=== PATIENT | male | born 1960 | race Two or more races ===

== ENCOUNTER 2025-03-01 12:04 | Emergency (ER) | payer MEDICAID, OTHER ==
[~2025-03-01] VITALS: Ht 160 cm; Wt 63.5 kg
[2025-03-01 13:01] LABS: APPEARANCE,URINE CLEAR (CLEAR); BLOOD, URINE Trace-intact Ery/uL (NEGATIVE); LEUKOCYTE ESTERASE ,URINE Negative (NEGATIVE); UGLUCOSE Negative (NEGATIVE)
[2025-03-01 13:03] LABS: NITRITE, URINE NEGATIVE (NEGATIVE)
[2025-03-01 13:04] LABS: PLATELET COUNT (AUTO) 195 K/uL (150-450); RED BLOOD CELL COUNT(AUTO) 5.66 MIL/uL (4.5-6.0); RED CELL DISTRIBUTION WIDTH 14.0 % (11.5-15.0); WHITE BLOOD COUNT (AUTO) 8.1 K/uL (4.3-11.0)
[2025-03-01 13:14] LABS: CALCIUM, SERUM 9.6 mg/dL (8.5-10.1); CREATININE 0.8 mg/dL (0.6-1.3); SODIUM SERUM 138.0 mmol/L (136-145); UREA NITROGEN, BLOOD 7.0 mg/dL (7-18)
[2025-03-01 13:15] LABS: ADD URINE CULTURE NO
[2025-03-01 13:16] LABS: SQUAMOUS EPITHELIAL CELL,UR None Seen /HPF (None Seen)
[2025-03-01 13:20] LABS: ASPARTATE AMINOTRANSFERASE 23.0 U/L (15-37); TOTAL PROTEIN, SERUM 7.4 g/dL (6.4-8.2)
[2025-03-01] MEDS ORDERED: ONDA4TAB5 PO (14:17)
[2025-03-01] MEDS ORDERED: POLY17PO4 PO (14:17)
[2025-03-01] MEDS ORDERED: HYDR-4303 PO (14:17)
[2025-03-01 14:56] VITALS: BP 132/89; TEMP 98; O2SAT 98
== END 2025-03-01 14:57 | disposition home or self-care (01) ==
LOC: ER 12:12
DX: G89.29 Other chronic pain (principal); R14.0 Abdominal distension (gaseous); K59.00 Constipation, unspecified; R11.0 Nausea
CPT/HCPCS: 99284; 74176; 85025; 80048; 83690; 80076; 81001; 36415; A6403